=== PATIENT | male | born 2000 | race Caucasian/White ===

== ENCOUNTER 2021-11-19 13:49 | Emergency (ER) | payer OTHER ==
[~2021-11-19] VITALS: Ht 172.7 cm; Wt 81.7 kg
[2021-11-19] MEDS ORDERED: IBU600 MG PO (16:01)
== END 2021-11-19 16:39 | disposition home or self-care (01) ==
LOC: ED 13:49
DX: S06.9X1A Unspecified intracranial injury with loss of consciousness of 30 minutes or less, initial encounter (principal); S39.012A Strain of muscle, fascia and tendon of lower back, initial encounter; Z23 Encounter for immunization; Z91.038 Other insect allergy status; W17.89XA Other fall from one level to another, initial encounter
CPT/HCPCS: 70450; 72131; 90471; 90715; 99283-25